=== PATIENT | male | born 1950 | race Caucasian/White ===

== ENCOUNTER 2018-05-07 17:14 | Emergency (ER) | payer MEDICARE, OTHER ==
[~2018-05-07] VITALS: Ht 177.8 cm; Wt 103.4 kg
[~2018-05-07 17:14] MED LIST: ASPI-495 PO; DIGO125T PO; HYDR-3974 PO; SILD100T PO; VALS40TA4 PO
--- NOTE | 2018-05-07 17:20 | NUR ---
PRESENTS TO ER C/O SEVERE LOWER BACK PAIN S/P TRIP AND FALL 2 DAYS AGO. ALSO C/O SOB AND WHEEZING. A/OX 3, BREATHING EVEN AND UNLABORED AT THIS TIME. NO DISTRESS. VITALS STABLE. SAFETY AND COMFORT MEASURES IN PLACE. AWAITING MD ORDERS.
[2018-05-07] MEDS ORDERED: MORPHINE SULFATE INJ 2 MG/ML DISP.SYRIN IM ONE (18:00)
[2018-05-07] MEDS ORDERED: ONDANSETRON 4 MG TAB.RAPDIS SL ONE (18:00)
[2018-05-07] MEDS ORDERED: ALBUTEROL FS 2.5 MG/0.5 ML VIAL.NEB NEB ONE (18:00)
--- NOTE | 2018-05-07 18:02 | NUR ---
PATIENT TAKEN TO RADIOLOGY VIA WHEELCHAIR.
[2018-05-07] MEDS ORDERED: MORPHINE SULFATE INJ 4 MG/ML DISP.SYRIN ONE (18:04)
[2018-05-07] MEDS ORDERED: ONDANSETRON 4 MG TAB.RAPDIS ONE (18:05)
[2018-05-07] MEDS ORDERED: ALBUTEROL FS 2.5 MG/0.5 ML VIAL.NEB ONE (18:11)
--- NOTE | 2018-05-07 18:13 | NUR ---
PATIENT RETURNED FROM RADIOLOGY IN STABLE CONDITION.
--- NOTE | 2018-05-07 18:33 | NUR ---
IV removed. Catheter intact and site benign. Pressure and 4x4 applied to site. No bleeding noted. Patient discharged to home in stable condition. Written and verbal after care instructions given. Patient verbalizes understanding of instruction.
--- NOTE | 2018-05-07 19:02 | NUR ---
REPORT GIVEN TO ROSAURA FOR DARIO.
--- NOTE | 2018-05-07 19:19 | NUR ---
SHARAD PROCTOR-BC IS AT THE BEDSIDE SPEAKING TO THE PT RE: FINDINGS.
[2018-05-07 20:12] VITALS: BP 158/71
== END 2018-05-07 20:13 | disposition home or self-care (01) ==
LOC: ER 17:16
DX: M84.48XA Pathological fracture, other site, initial encounter for fracture (principal); J45.901 Unspecified asthma with (acute) exacerbation; F10.10 Alcohol abuse, uncomplicated; K57.92 Diverticulitis of intestine, part unspecified, without perforation or abscess without bleeding; Z88.0 Allergy status to penicillin; Z88.6 Allergy status to analgesic agent; Y90.9 Presence of alcohol in blood, level not specified
CPT/HCPCS: 72131-TC; 72192-TC; A4606; J2270; Q0162; Z7610

== ENCOUNTER 2018-05-09 18:45 | Inpatient (IN) | payer MEDICARE, OTHER ==
[~2018-05-09] VITALS: Ht 177.8 cm; Wt 103.4 kg
--- NOTE | 2018-05-09 19:00 | NUR ---
PT TO ER BED 09. BIBWIFE C/O BACK PAIN, WAS SEEN HERE IN ER 2 DAYS AGO. PT PLACED IN GOWN AND ON YARD LABOR SUPERVISOR. VSS/RESP EVEN UNLABORED/NAD NOTED/AOX4. AWAITING MD DOOLEY.
[2018-05-09] MEDS ORDERED: ONDANSETRON HCL/PF 4 MG/2 ML VIAL ONE (19:13)
[2018-05-09] MEDS ORDERED: MORPHINE SULFATE INJ 4 MG/ML DISP.SYRIN ONE (19:14)
--- NOTE | 2018-05-09 19:20 | NUR ---
18G IV TO R AC X 1 ATTEMPT USING ASEPTIC TECH, BLOOD HANDED OVER TO THE LAB AT THE BEDSIDE. IV FLUSHES EASILY WITH NS, NO S/S INFILTRATION NOTED AT THIS TIME.
--- NOTE | 2018-05-09 19:29 | NUR ---
ASHISH PAGED, ABNER MACDONALD SIGNAL INTELLIGENCE ANALYST ACTIVITIES ATTENDANT
[2018-05-09] MEDS ORDERED: ONDANSETRON HCL/PF 4 MG/2 ML VIAL IVP ONE (19:30)
[2018-05-09] MEDS ORDERED: MORPHINE SULFATE INJ 2 MG/ML DISP.SYRIN IV ONE (19:30)
--- NOTE | 2018-05-09 19:30 | NUR ---
CALLED NURSING SUP. FOR MS BED
[2018-05-09 19:42] LABS: BASOPHILS % (AUTO) 0.2 % (0.0-2.0); EOSINOPHILS % (AUTO) 1.9 % (0.0-6.0); HEMATOCRIT 43 % (39-51); HEMOGLOBIN 14.8 g/dL (13.5-17.5); LYMPHOCYTES # (AUTO) 0.6 /CMM (0.8-4.8); LYMPHOCYTES % (AUTO) 9.4 % (20.0-44.0); MEAN CORPUSCULAR HGB CONC 34 g/dl (31.0-36.0); MEAN CORPUSCULAR VOLUME 101 fL (80-96); MONOCYTES # (AUTO) 0.4 /CMM (0.1-1.30); MONOCYTES % (AUTO) 6.4 % (2.0-12.0); NEUTROPHILS # (AUTO) 5.6 /CMM (1.8-8.9); NEUTROPHILS % (AUTO) 82.1 % (43.0-81.0); PLATELET COUNT (AUTO) 197 /CMM (150-450); RDW COEFFICIENT OF VARIATION 13.1 (11.5-15.0); RED BLOOD CELL COUNT(AUTO) 4.31 MIL/uL (4.5-6.0); WHITE BLOOD COUNT (AUTO) 6.7 K/uL (4.3-11.0)
[2018-05-09 19:48] LABS: POTASSIUM 3.9 mmol/L (3.5-5.1)
[2018-05-09 19:52] LABS: INR 0.98 (0.85-1.15)
[2018-05-09 20:00] VITALS: BP 141/63
[2018-05-09] MEDS ORDERED: MAG HYDROX/AL HYDROX/SIMETH 30 ML UDC PO PRN (20:00)
[2018-05-09] MEDS ORDERED: MORPHINE SULFATE INJ 2 MG/ML DISP.SYRIN IV PRN (20:00)
[2018-05-09] MEDS ORDERED: Z GUARD REMEDY 2 OZ OINT TP PRN (20:00)
[2018-05-09] MEDS ORDERED: ONDANSETRON HCL/PF 4 MG/2 ML VIAL IVP PRN (20:00)
[2018-05-09] MEDS ORDERED: MAGNESIUM HYDROXIDE 30 ML UDC PO PRN (20:00)
[2018-05-09] MEDS ORDERED: ACETAMINOPHEN 325 MG TABLET PO PRN (20:00)
--- NOTE | 2018-05-09 20:00 | NUR ---
MS 322-2 FOR INTRACTABLE BACK PAIN, ABNER MACDONALD ADMITTING
--- NOTE | 2018-05-09 20:40 | NUR ---
REPORT GIVEN TO [facility]
--- NOTE | 2018-05-09 20:47 | NUR ---
MS/RN RECEIVE PATIENT FROM [facility]. PATIENT IS AWAKE, ALERT, ORIENTED, COMFORTABLE, NO C/O AT THIS TIME, NO DISTRESS NOTE, ADMISSION DONE PER PROTOCOL, PLAN OF CARE DISCUSSED, VERBALIZED UNDERSTANDING AND AGREEMENT, TAUGHT THE USE OF CALL LIGHT AND PLACED AT BEDSIDE WITHIN REACH. WILL MONITOR.
[2018-05-09] MEDS: ENOXAPARIN SODIUM 40 MG/0.4 ML DISP.SYRIN SQ SCH (21:28)
--- NOTE | 2018-05-09 22:27 | NUR ---
MS/RN PATIENT IS SLEEPING AT THIS TIME, AROUSABLE, APPEAR COMFORTABLE, NO DISTRESS NOTED, CALL LIGHT IN REACH. WILL MONITOR.
[2018-05-09] MEDS ORDERED: METR500T PO (23:10)
[2018-05-09] MEDS ORDERED: CIPR500T5 PO (23:10)
[2018-05-09] MEDS ORDERED: HYDR-552 PO (23:10)
[2018-05-10] MEDS ORDERED: HYDROCODONE/APAP 5/325MG 1 EACH TABLET PO SCH (00:30)
[2018-05-10] MEDS: MORPHINE SULFATE INJ 4 MG/ML DISP.SYRIN IV PRN ×5 (00:47→22:44)
[2018-05-10 05:30] VITALS: BP 131/75
--- NOTE | 2018-05-10 05:51 | NUR ---
MS/RN PATIENT C/O LOWER BACK WADE 07/27, MEDICATED WITH MORPHINE 1 MG IVP ORDERED. WILL MONITOR. ALL NEEDS ATTENDED AT THIS TIME.
[2018-05-10 06:39] LABS: BASOPHILS % (AUTO) 0.5 % (0.0-2.0); HEMATOCRIT 44 % (39-51); HEMOGLOBIN 14.9 g/dL (13.5-17.5); LYMPHOCYTES # (AUTO) 0.8 /CMM (0.8-4.8); LYMPHOCYTES % (AUTO) 15.2 % (20.0-44.0); MEAN CORPUSCULAR HGB CONC 34 g/dl (31.0-36.0); MEAN CORPUSCULAR VOLUME 104 fL (80-96); MONOCYTES # (AUTO) 0.6 /CMM (0.1-1.30); MONOCYTES % (AUTO) 11.1 % (2.0-12.0); NEUTROPHILS # (AUTO) 3.5 /CMM (1.8-8.9); NEUTROPHILS % (AUTO) 70.2 % (43.0-81.0); PLATELET COUNT (AUTO) 153 /CMM (150-450); RDW COEFFICIENT OF VARIATION 14.2 (11.5-15.0); RED BLOOD CELL COUNT(AUTO) 4.25 MIL/uL (4.5-6.0)
[2018-05-10 06:55] LABS: CALCIUM, SERUM 8.4 mg/dL (8.5-10.1); CREATININE 0.9 mg/dL (0.6-1.3); MAGNESIUM 1.8 mg/dL (1.8-2.4); PHOSPHORUS 2.3 mg/dL (2.5-4.9); POTASSIUM 3.9 mmol/L (3.5-5.1)
[2018-05-10 07:06] LABS: THYROID STIMULATING HORMONE 1.079 uIU/mL (0.358-3.74)
--- NOTE | 2018-05-10 07:49 | NUR ---
MS RN OPENING NOTES RECEIVED PT FROM NIGHTSHIFT NURSE IN STABLE CONDITION. PT IS A/O X4. NO SOB NOTED. BREATHING IS EVEN AND UNLABORED. PT IS ON RA AND SATING WELL. HE DOES HOWEVER STATE THAT HE HAS LOWER BACK PAIN RATED AN 8/10. HE STATES THAT IT IS UNRELIEVED BY HIS CURRENT PAIN MANAGEMENT. WILL MAKE MD AWARE. IV TO RIGHT AC NOTED TO BE PATENT AND INTACT. NO REDNESS OR SIGNS OF INFILTRATION NOTED. BED IN LOW LOCKED POSITION, SIDE RAILS UP X2, CALL LIGHT WITHIN REACH. WILL CONTINUE TO MONITOR
[2018-05-10 08:00] VITALS: BP 146/75
[2018-05-10] MEDS: HYDROCODONE/APAP 10/325MG 1 EA TABLET PO PRN (08:33)
[2018-05-10] MEDS: ASPIRIN EC 81 MG TABLET.DR PO SCH (08:34)
[2018-05-10] MEDS: PANTOPRAZOLE 40 MG TABLET.DR PO SCH (08:35)
[2018-05-10] MEDS: METRONIDAZOLE 500 MG TABLET PO SCH ×3 (08:36→17:16)
[2018-05-10] MEDS: VALSARTAN 40 MG TABLET PO SCH (08:36)
[2018-05-10] MEDS: CIPROFLOXACIN HCL 500 MG TABLET PO SCH ×2 (08:36→17:16)
[2018-05-10] MEDS: DIGOXIN 0.125 MG TABLET PO SCH (08:36)
[2018-05-10] MEDS ORDERED: SILDENAFIL CITRATE 25 MG TABLET PO SCH (12:00)
[2018-05-10] MEDS: SILDENAFIL CITRATE 20 MG TABLET PO SCH (12:11)
[2018-05-10] MEDS ORDERED: K PHOS NEUTRAL 250 MG TABLET PO ONE (13:30)
[2018-05-10 16:00] VITALS: BP 146/69
--- NOTE | 2018-05-10 18:36 | NUR ---
MS RN CLOSING NOTES PT REMAINS IN STABLE CONDITION. ALL NEEDS WERE MET DURING SHIFT AND ORDERS CARRIED OUT ACCORDINGLY ALL DUE MEDS GIVEN. PAIN PROPERLY MANAGED WITH A COMBINATION OF MORPHINE AND NORCO ADMINISTRATION. HE WAS NOT SEEN BY PT HOWEVER, MULTIPLE ATTEMPTS WERE MADE TO CONTACT THERAPIST TO NO AVAIL. WILL F/U IN THE AM. IV REMAINS PATENT AND INTACT. VITALS STABLE THROUGHOUT SHIFT. WILL ENDORSE TO NIGHTSHIFT NURSE FOR DARIO
--- NOTE | 2018-05-10 19:40 | NUR ---
MS RN OPENING NOTE Patient was seen lying in bed AAOx4, breathing on RA with no SOB, and no signs of acute distress. SL IV is noted in the right FA, intact. Patient does complain of low back pain (s/p sacral fracture), but verbalizes understanding that it is too soon for his next dose of pain medication. Bed is in the low/locked position, two side rails up, and call dela cruz within reach. Will continue to monitor.
[2018-05-10 20:00] VITALS: BP 136/59
[2018-05-10] MEDS: HYDROCODONE/APAP 5/325MG 1 EACH TABLET PO PRN (20:37)
--- NOTE | 2018-05-10 20:40 | NUR ---
MS RN NOTE - [place] Patient s/p sacral fx is reporting low back pain at 8/10, and requesting [place] to have in between IV morphine. PO [place] 5/325mg administered as ordered. Will continue to monitor.
[2018-05-10] MEDS: ENOXAPARIN SODIUM 40 MG/0.4 ML DISP.SYRIN SQ SCH (21:00)
--- NOTE | 2018-05-10 22:45 | NUR ---
MS RN NOTE - Morphine IV Morphine 1mg administered for 9/10 low back pain reported by patient (s/p sacral fx). Patient commented that the [place] was not helpful. Will continue to monitor.
[2018-05-11] MEDS: HYDROCODONE/APAP 10/325MG 1 EA TABLET PO PRN ×4 (02:07→23:20)
--- NOTE | 2018-05-11 02:07 | NUR ---
MS RN NOTE - [place] Patient awoke from sleep and reported 10/10 low back pain; requested pain medication. Too early to give IV Morphine, therefore, PO [place] 10/325mg was administered as ordered.
[2018-05-11] MEDS: MORPHINE SULFATE INJ 4 MG/ML DISP.SYRIN IV PRN ×4 (06:04→20:37)
--- NOTE | 2018-05-11 06:09 | NUR ---
MS RN NOTE - Morphine Patient reported 8/10 low back pain and requested Morphine. 1mg IV Morphine administered as ordered.
--- NOTE | 2018-05-11 07:21 | NUR ---
MS RN OPENING NOTES RECEIVED PT FROM NIGHTSHIFT NURSE IN STABLE CONDITION. PT IS A/O X4. NO SOB NOTED. BREATHING IS EVEN AND UNLABORED. PT IS ON RA AND SATING WELL. HE VERBALIZES THAT HIS PAIN IS TOLERABLE AT THE MOMENT BUT WILL LIKE A PRN PAIN MEDICATION WHEN DUE. IV TO RIGHT AC NOTED TO BE PATENT AND INTACT. NO REDNESS OR SIGNS OF INFILTRATION NOTED. BED IN LOW LOCKED POSITION, SIDE RAILS UP X2, CALL LIGHT WITHIN REACH. WILL CONTINUE TO MONITOR
--- NOTE | 2018-05-11 07:44 | NUR ---
MS RN CLOSING NOTE Patient was seen lying in bed AAOx4, breathing on RA with no SOB. Patient continues with chronic back but is otherwise in no acute distress. Patient remains in stable condition. Call dela cruz within reach. Patient care has been endorsed to day shift RN.
[2018-05-11 08:00] VITALS: BP 123/66
[2018-05-11] MEDS: METRONIDAZOLE 500 MG TABLET PO SCH ×3 (08:27→16:22)
[2018-05-11] MEDS: VALSARTAN 40 MG TABLET PO SCH (08:27)
[2018-05-11] MEDS: CIPROFLOXACIN HCL 500 MG TABLET PO SCH ×2 (08:27→16:22)
[2018-05-11] MEDS: DIGOXIN 0.125 MG TABLET PO SCH (08:27)
[2018-05-11] MEDS: ASPIRIN EC 81 MG TABLET.DR PO SCH (08:28)
[2018-05-11] MEDS: PANTOPRAZOLE 40 MG TABLET.DR PO SCH (08:29)
[2018-05-11] MEDS: SILDENAFIL CITRATE 20 MG TABLET PO SCH (08:30)
[2018-05-11 16:00] VITALS: BP 143/70
--- NOTE | 2018-05-11 18:45 | NUR ---
MS RN CLOSING NOTES PT REMAINS IN STABLE CONDITION. ALL NEEDS WERE MET DURING SHIFT AND ORDERS CARRIED OUT ACCORDINGLY ALL DUE MEDS GIVEN. PAIN PROPERLY MANAGED WITH A COMBINATION OF MORPHINE AND NORCO ADMINISTRATION. IV REMAINS PATENT AND INTACT. VITALS STABLE THROUGHOUT SHIFT. WILL ENDORSE TO NIGHTSHIFT NURSE FOR DARIO
--- NOTE | 2018-05-11 19:35 | NUR ---
MS RN OPENING NOTE Patient was seen ambulating to the bathroom with a slow but steady gait. He is breathing comfortably on RA with no SOB and no signs of acute distress. SL IV remains intact in the right AC. Patient was made comfortable in bed with the bed in low/locked position, two side rails up, and call delac ruz within reach. Patient has no immediate needs or concerns at this time. Will continue to monitor.
[2018-05-11 20:00] VITALS: BP 129/67
--- NOTE | 2018-05-11 20:37 | NUR ---
MS RN NOTE - Morphine Patient reported 8 low back pain (s/p sacral fracture); he requested morphine. 1mg IV morphine was administered as ordered prn q4h. Vitals WNL. Will continue to monitor.
[2018-05-11] MEDS: ENOXAPARIN SODIUM 40 MG/0.4 ML DISP.SYRIN SQ SCH (20:38)
--- NOTE | 2018-05-11 23:20 | NUR ---
MS RN NOTE - [place] Patient awoke from sleep in pain, 8/10 low back pain, and requested [place]. PO [place] 10/325mg was administered. Will continue to monitor.
[2018-05-12] MEDS: MORPHINE SULFATE INJ 4 MG/ML DISP.SYRIN IV PRN (01:23)
--- NOTE | 2018-05-12 01:24 | NUR ---
MS RN NOTE - Morphine 1mg IV morphine given for uncontrollable back pain (06/26) s/p sacral fracture. Vitals WNL. Will continue to monitor.
[2018-05-12] MEDS: HYDROCODONE/APAP 10/325MG 1 EA TABLET PO PRN ×2 (03:53→08:12)
--- NOTE | 2018-05-12 03:59 | NUR ---
MS RN NOTE - [place] Patient awoke from sleep complaining of 8/10 low back pain, worse with movement/position change. PO [place] 10/325mg was given. Vitals remain WNL. Will continue to monitor.
--- NOTE | 2018-05-12 06:57 | NUR ---
MS RN CLOSING NOTE Patient was seen lying in bed AAOx4, breathing comfortably on RA with no SOB, and no signs of acute distress. Patient slept intermittently overnight, waking with back pain and requesting pain medication; otherwise, patient had no complications, vitals remain WNL, and patient is stable. Call dela cruz is within reach and patient has no immediate needs at this time. Patient care endorsed to day shift RN.
--- NOTE | 2018-05-12 07:25 | NUR ---
ms rn initial notes Received patient in bed, asleep, head of bed elevated, no SOB or distress noted, on room air and tolerated well. IV intact and patent, HL only. Alert and oriented x 3, verbally responsive and able to make needs known, per endorsement. No facial grimace noted. Call light with in patient reach, will continue to monitor accordingly.
[2018-05-12 08:00] VITALS: BP 127/69
[2018-05-12] MEDS: DIGOXIN 0.125 MG TABLET PO SCH (08:12)
[2018-05-12] MEDS: PANTOPRAZOLE 40 MG TABLET.DR PO SCH (08:12)
[2018-05-12] MEDS: SILDENAFIL CITRATE 20 MG TABLET PO SCH (08:12)
[2018-05-12] MEDS: ASPIRIN EC 81 MG TABLET.DR PO SCH (08:12)
[2018-05-12 08:13] VITALS: BP 127/69
[2018-05-12] MEDS: VALSARTAN 40 MG TABLET PO SCH (08:13)
[2018-05-12] MEDS: CIPROFLOXACIN HCL 500 MG TABLET PO SCH (08:13)
[2018-05-12] MEDS: METRONIDAZOLE 500 MG TABLET PO SCH ×2 (08:13→12:01)
--- NOTE | 2018-05-12 09:03 | NUR ---
ms rn notes Ale PEWTER FABRICATOR on site and informed about patient requesting for pain medication and per PEWTER FABRICATOR he will be discharge today and no more IVP pain medication, she will prescribe him PO pain medication. Patient made aware and amenable.
[2018-05-12] MEDS: HYDROCODONE/APAP 5/325MG 1 EACH TABLET PO PRN (09:09)
--- NOTE | 2018-05-12 15:15 | NUR ---
ms cleaner furniture notes Discharge instructions given to patient and able to understand instructions. Signed discharge paper and belonging list. Prescription given. Informed patient for follow appointment with his primary health care physician in 1-[address] Christian pain management . skin intact. Flu vaccine out of season and PNA refused. Explained the risk and benefits x 3 and still refused. Patient left via wheelchair in stable condition accompanied by RN assigned. Vital signs checked and recorded. discontinued IV and pressured applied to prevent bleeding. No complaint of pain or discomfort noted, nor chest pain. MD and charge nurse aware.
== END 2018-05-12 14:52 | disposition home or self-care (01) | DRG 543 ==
LOC: ER 18:53 → MED 20:20
PROVIDERS: ADMIT Registered Nurse; ATTEND Registered Nurse
DX: M48.58XA Collapsed vertebra, not elsewhere classified, sacral and sacrococcygeal region, initial encounter for fracture (principal); K57.32 Diverticulitis of large intestine without perforation or abscess without bleeding; M48.56XA Collapsed vertebra, not elsewhere classified, lumbar region, initial encounter for fracture; I11.0 Hypertensive heart disease with heart failure; I27.20 Pulmonary hypertension, unspecified; J45.909 Unspecified asthma, uncomplicated; I50.9 Heart failure, unspecified; Z96.653 Presence of artificial knee joint, bilateral; Z96.641 Presence of right artificial hip joint; Z82.3 Family history of stroke; Z80.1 Family history of malignant neoplasm of trachea, bronchus and lung; Z88.0 Allergy status to penicillin; Z79.82 Long term (current) use of aspirin; Z79.899 Other long term (current) drug therapy; Z91.81 History of falling; F10.21 Alcohol dependence, in remission; F15.21 Other stimulant dependence, in remission; J42 Unspecified chronic bronchitis; E78.5 Hyperlipidemia, unspecified; Z91.09 Other allergy status, other than to drugs and biological substances; E66.9 Obesity, unspecified; M48.061 Spinal stenosis, lumbar region without neurogenic claudication; Z68.32 Body mass index [BMI] 32.0-32.9, adult; R73.9 Hyperglycemia, unspecified
CPT/HCPCS: 36415; 71045-TC; 72131-TC; 72192-TC; 80048-TC; 80061-TC; 83735-TC; 84100-TC; 84443-TC; 85025-TC; 85730-TC; 87081-TC; A4606; J1650; J2270; J2405; Z7610

== ENCOUNTER 2018-05-14 12:55 | Outpatient (CLI) | payer MEDICARE ==
[~2018-05-14 12:55] MED LIST changes: +CIPR500T5 PO; +METR500T PO
[2018-05-14 13:10] VITALS: BP 152/100
== END 2018-05-14 23:59 | disposition home or self-care (01) ==
LOC: MSC 12:55
PROVIDERS: ATTEND Internal Medicine
DX: M84.48XD Pathological fracture, other site, subsequent encounter for fracture with routine healing (principal); G95.29 Other cord compression; M19.90 Unspecified osteoarthritis, unspecified site; I10 Essential (primary) hypertension; J44.9 Chronic obstructive pulmonary disease, unspecified; I27.20 Pulmonary hypertension, unspecified; E66.9 Obesity, unspecified; X58.XXXD Exposure to other specified factors, subsequent encounter

== ENCOUNTER 2019-03-15 13:45 | Inpatient (IN) | payer OTHER, MEDICARE ==
[~2019-03-15] VITALS: Ht 177.8 cm; Wt 103.0 kg
[2019-03-15] MEDS ORDERED: DIPH50CA4 PO (14:23)
[2019-03-15 14:31] LABS: BASOPHILS # (AUTO) 0.1 /CMM (0.0-0.2); BASOPHILS % (AUTO) 0.7 % (0.0-2.0); EOSINOPHILS % (AUTO) 1.5 % (0.0-6.0); HEMATOCRIT 47 % (39-51); LYMPHOCYTES # (AUTO) 0.7 /CMM (0.8-4.8); LYMPHOCYTES % (AUTO) 6.3 % (20.0-44.0); MEAN CORPUSCULAR HGB CONC 34 g/dl (31.0-36.0); MEAN CORPUSCULAR VOLUME 102 fL (80-96); MONOCYTES # (AUTO) 0.9 /CMM (0.1-1.30); NEUTROPHILS # (AUTO) 9.2 /CMM (1.8-8.9); NEUTROPHILS % (AUTO) 83.5 % (43.0-81.0); PLATELET COUNT (AUTO) 249 /CMM (150-450); RED BLOOD CELL COUNT(AUTO) 4.64 MIL/uL (4.5-6.0)
[2019-03-15 14:38] LABS: CREATININE 1.1 mg/dL (0.6-1.3); POTASSIUM 3.8 mmol/L (3.5-5.1)
[2019-03-15 14:44] LABS: ALBUMIN 3.7 g/dL (3.4-5.0); BILIRUBIN,DIRECT 0.3 mg/dL (0.0-0.2); BILIRUBIN,TOTAL 2.8 mg/dL (0.2-1.0); TOTAL PROTEIN, SERUM 7.5 g/dL (6.4-8.2)
[2019-03-15] MEDS ORDERED: CT SWABBABLE VALVE TRANS SET 1 EA INFUS.SET MC ONE (14:55)
[2019-03-15] MEDS ORDERED: IV NS 0.9% 250 ML IV ONE (14:55)
[2019-03-15] MEDS ORDERED: IOHEXOL-300 100 ML VIAL IV ONE (14:55)
[2019-03-15] MEDS ORDERED: IV NS 0.9% 1,000 ML BAG IV ONE ×2 (15:00→16:30)
[2019-03-15] MEDS ORDERED: MORPHINE SULFATE INJ 2 MG/ML DISP.SYRIN IV ONE (15:00)
[2019-03-15] MEDS ORDERED: ONDANSETRON HCL/PF - ER 4 MG/2 ML VIAL IV ONE (15:00)
[2019-03-15] MEDS ORDERED: MORPHINE SULFATE INJ 4 MG/ML DISP.SYRIN ONE (15:18)
[2019-03-15] MEDS ORDERED: ONDANSETRON HCL/PF 4 MG/2 ML VIAL ONE (15:18)
[2019-03-15] MEDS ORDERED: FLAGYL/NS RTU 500 MG/100 ML PIGGYBACK IV ONE (16:30)
[2019-03-15] MEDS ORDERED: LEVOFLOXACIN 500 MG /D5W 100ML 500 MG in PREMIX 1 EA IV ONE (16:30)
[2019-03-15] MEDS ORDERED: METRONIDAZOLE 500MG/ NS 100ML 500 MG in PREMIX 1 EA IV ONE (16:30)
[2019-03-15] MEDS ORDERED: LEVOFLOXACIN 500 MG /D5W 100ML 500 MG/100 ML PIGGYBACK IV ONE (16:30)
[2019-03-15] MEDS ORDERED: HYDROCODONE/APAP 5/325MG 1 EACH TABLET PO PRN (17:30)
[2019-03-15] MEDS ORDERED: MAGNESIUM HYDROXIDE 30 ML UDC PO PRN (17:30)
[2019-03-15] MEDS ORDERED: Z GUARD REMEDY 2 OZ OINT TP PRN (17:30)
[2019-03-15] MEDS ORDERED: MAG HYDROX/AL HYDROX/SIMETH 30 ML UDC PO PRN (17:30)
[2019-03-15] MEDS ORDERED: ZOLPIDEM TARTRATE 5 MG TABLET PO PRN (17:30)
[2019-03-15] MEDS ORDERED: ACETAMINOPHEN 325 MG TABLET PO PRN (17:30)
[2019-03-15 18:58] VITALS: BP 151/98
[2019-03-15 19:00] VITALS: BP 159/93
[2019-03-15] MEDS ORDERED: diphenhydrAMINE HCL 50 MG CAPSULE PO PRN (19:30)
[2019-03-15] MEDS: ONDANSETRON HCL/PF 4 MG/2 ML VIAL IVP PRN (19:48)
[2019-03-15] MEDS: MORPHINE SULFATE INJ 2 MG/ML DISP.SYRIN IV PRN (19:49)
[2019-03-15] MEDS: IV D5/0.45 NACL 1,000 ML IV PRN (19:58)
[2019-03-15 20:00] VITALS: BP 159/93
[2019-03-15 20:39] LABS: APPEARANCE,URINE CLEAR (CLEAR); BILIRUBIN,URINE NEGATIVE (NEGATIVE); BLOOD, URINE NEGATIVE Ery/uL (NEGATIVE); COLOR,URINE YELLOW (YELLOW); KETONES,URINE TRACE (NEGATIVE); LEUKOCYTE ESTERASE ,URINE NEGATIVE (NEGATIVE); NITRITE, URINE NEGATIVE (NEGATIVE); PROTEIN,URINE NEGATIVE (NEGATIVE); UGLUCOSE NEGATIVE (NEGATIVE); UROBILINOGEN,URINE 0.2 EU/dL (0.2)
[2019-03-15 21:00] LABS: BACTERIA,URINE Rare /HPF (None Seen); RBC,URINE NONE SEEN /HPF (0-2); SQUAMOUS EPITHELIAL CELL,UR Rare /HPF (None Seen); WBC,URINE 0-2 /HPF (0-3)
[2019-03-16] MEDS: ONDANSETRON HCL/PF 4 MG/2 ML VIAL IVP PRN ×3 (04:34→16:12)
[2019-03-16] MEDS: IV D5/0.45 NACL 1,000 ML IV PRN ×2 (04:44→14:54)
[2019-03-16] MEDS: MORPHINE SULFATE INJ 2 MG/ML DISP.SYRIN IV PRN (04:46)
[2019-03-16 06:57] LABS: BASOPHILS % (AUTO) 0.3 % (0.0-2.0); EOSINOPHILS % (AUTO) 2.3 % (0.0-6.0); HEMATOCRIT 44 % (39-51); HEMOGLOBIN 14.9 g/dL (13.5-17.5); LYMPHOCYTES # (AUTO) 0.6 /CMM (0.8-4.8); LYMPHOCYTES % (AUTO) 7.3 % (20.0-44.0); MEAN CORPUSCULAR HGB CONC 34 g/dl (31.0-36.0); MEAN CORPUSCULAR VOLUME 101 fL (80-96); MONOCYTES % (AUTO) 11.2 % (2.0-12.0); NEUTROPHILS # (AUTO) 6.7 /CMM (1.8-8.9); NEUTROPHILS % (AUTO) 78.9 % (43.0-81.0); PLATELET COUNT (AUTO) 209 /CMM (150-450); RED BLOOD CELL COUNT(AUTO) 4.31 MIL/uL (4.5-6.0); WHITE BLOOD COUNT (AUTO) 8.5 K/uL (4.3-11.0)
[2019-03-16 07:21] LABS: CALCIUM, SERUM 8.8 mg/dL (8.5-10.1); CREATININE 0.9 mg/dL (0.6-1.3); MAGNESIUM 2.1 mg/dL (1.8-2.4); PHOSPHORUS 2.6 mg/dL (2.5-4.9); POTASSIUM 4.1 mmol/L (3.5-5.1)
[2019-03-16 07:43] LABS: THYROID STIMULATING HORMONE 1.212 uIU/mL (0.358-3.74)
[2019-03-16 08:00] VITALS: BP 145/85
[2019-03-16] MEDS: DIGOXIN 0.125 MG TABLET PO SCH (09:00)
[2019-03-16] MEDS: SILDENAFIL CITRATE 20 MG TABLET PO SCH (09:00)
[2019-03-16] MEDS: VALSARTAN 40 MG TABLET PO SCH (09:00)
[2019-03-16] MEDS: PANTOPRAZOLE 40 MG VIAL IV SCH (09:34)
[2019-03-16 16:00] VITALS: BP_SYST 150; BP_SYST 151; BP_DIAS 81; BP_DIAS 91
[2019-03-16] MEDS: METRONIDAZOLE 500MG/ NS 100ML 500 MG in PREMIX 1 EA IV SCH (17:58)
[2019-03-16] MEDS ORDERED: LEVOFLOXACIN 500 MG /D5W 100ML 500 MG in PREMIX 1 EA IV SCH (18:00)
[2019-03-16 20:00] VITALS: BP 167/88
[2019-03-16 20:34] VITALS: BP 167/88
[2019-03-17] MEDS: METRONIDAZOLE 500MG/ NS 100ML 500 MG in PREMIX 1 EA IV SCH ×3 (01:17→17:30)
[2019-03-17] MEDS: ONDANSETRON HCL/PF 4 MG/2 ML VIAL IVP PRN ×3 (06:15→17:56)
[2019-03-17] MEDS: IV D5/0.45 NACL 1,000 ML IV PRN ×2 (06:16→22:13)
[2019-03-17 07:23] LABS: BASOPHILS # (AUTO) 0.1 /CMM (0.0-0.2); BASOPHILS % (AUTO) 0.6 % (0.0-2.0); EOSINOPHILS % (AUTO) 1.9 % (0.0-6.0); HEMATOCRIT 46 % (39-51); HEMOGLOBIN 15.7 g/dL (13.5-17.5); LYMPHOCYTES # (AUTO) 0.9 /CMM (0.8-4.8); LYMPHOCYTES % (AUTO) 11.1 % (20.0-44.0); MEAN CORPUSCULAR HGB CONC 34 g/dl (31.0-36.0); MEAN CORPUSCULAR VOLUME 100 fL (80-96); MONOCYTES # (AUTO) 0.8 /CMM (0.1-1.30); MONOCYTES % (AUTO) 10.2 % (2.0-12.0); NEUTROPHILS # (AUTO) 6.1 /CMM (1.8-8.9); NEUTROPHILS % (AUTO) 76.2 % (43.0-81.0); PLATELET COUNT (AUTO) 233 /CMM (150-450); RED BLOOD CELL COUNT(AUTO) 4.57 MIL/uL (4.5-6.0)
[2019-03-17 08:00] VITALS: BP 134/80
[2019-03-17 08:09] LABS: CALCIUM, SERUM 8.9 mg/dL (8.5-10.1); MAGNESIUM 2.1 mg/dL (1.8-2.4); PHOSPHORUS 2.6 mg/dL (2.5-4.9); POTASSIUM 3.9 mmol/L (3.5-5.1)
[2019-03-17] MEDS: PANTOPRAZOLE 40 MG VIAL IV SCH (08:52)
[2019-03-17] MEDS: SILDENAFIL CITRATE 20 MG TABLET PO SCH (09:00)
[2019-03-17] MEDS ORDERED: LEVOFLOXACIN 750 MG /D5W 150ML 750 MG in PREMIX 1 EA IV SCH (13:00)
[2019-03-17 16:00] VITALS: BP 145/92
[2019-03-17] MEDS: VALSARTAN 40 MG TABLET PO SCH (17:28)
[2019-03-17] MEDS: DIGOXIN 0.125 MG TABLET PO SCH (17:28)
[2019-03-17 18:28] LABS: ALBUMIN 3.1 g/dL (3.4-5.0); BILIRUBIN,DIRECT 0.1 mg/dL (0.0-0.2); BILIRUBIN,TOTAL 1.2 mg/dL (0.2-1.0); TOTAL PROTEIN, SERUM 6.9 g/dL (6.4-8.2)
[2019-03-17] MEDS ORDERED: SILDENAFIL CITRATE 20 MG TABLET PO ONE (18:30)
[2019-03-17 20:00] VITALS: BP 143/91
[2019-03-17 20:08] VITALS: BP 143/91
[2019-03-18] MEDS: METRONIDAZOLE 500MG/ NS 100ML 500 MG in PREMIX 1 EA IV SCH ×2 (00:54→08:43)
[2019-03-18] MEDS: ONDANSETRON HCL/PF 4 MG/2 ML VIAL IVP PRN (04:37)
[2019-03-18 07:34] LABS: BASOPHILS # (AUTO) 0.1 /CMM (0.0-0.2); BASOPHILS % (AUTO) 0.7 % (0.0-2.0); EOSINOPHILS % (AUTO) 2.5 % (0.0-6.0); HEMATOCRIT 45 % (39-51); HEMOGLOBIN 15.2 g/dL (13.5-17.5); LYMPHOCYTES % (AUTO) 14.6 % (20.0-44.0); MEAN CORPUSCULAR HGB CONC 34 g/dl (31.0-36.0); MEAN CORPUSCULAR VOLUME 100 fL (80-96); MONOCYTES # (AUTO) 0.8 /CMM (0.1-1.30); MONOCYTES % (AUTO) 11.2 % (2.0-12.0); NEUTROPHILS # (AUTO) 4.9 /CMM (1.8-8.9); PLATELET COUNT (AUTO) 256 /CMM (150-450); RED BLOOD CELL COUNT(AUTO) 4.47 MIL/uL (4.5-6.0); WHITE BLOOD COUNT (AUTO) 6.9 K/uL (4.3-11.0)
[2019-03-18 07:43] LABS: CREATININE 1.1 mg/dL (0.6-1.3); PHOSPHORUS 2.5 mg/dL (2.5-4.9); POTASSIUM 3.8 mmol/L (3.5-5.1)
[2019-03-18 08:00] VITALS: BP 160/65
[2019-03-18 08:42] VITALS: BP 160/105
[2019-03-18] MEDS: PANTOPRAZOLE 40 MG VIAL IV SCH (08:42)
[2019-03-18] MEDS: VALSARTAN 40 MG TABLET PO SCH (08:42)
[2019-03-18] MEDS: DIGOXIN 0.125 MG TABLET PO SCH (08:43)
[2019-03-18] MEDS ORDERED: SILDENAFIL CITRATE 20 MG TABLET PO SCH (09:00)
== END 2019-03-18 11:26 | disposition home or self-care (01) | DRG 391 ==
LOC: ER 13:51 → MED 17:16
PROVIDERS: ADMIT Student in an Organized Health Care Education/Training Program
DX: K57.80 Diverticulitis of intestine, part unspecified, with perforation and abscess without bleeding (principal); K65.9 Peritonitis, unspecified; K63.2 Fistula of intestine; N12 Tubulo-interstitial nephritis, not specified as acute or chronic; K42.9 Umbilical hernia without obstruction or gangrene; E86.0 Dehydration; I10 Essential (primary) hypertension; J45.909 Unspecified asthma, uncomplicated; Z68.33 Body mass index [BMI] 33.0-33.9, adult; R91.8 Other nonspecific abnormal finding of lung field; K76.9 Liver disease, unspecified; M19.90 Unspecified osteoarthritis, unspecified site; R73.9 Hyperglycemia, unspecified; E66.9 Obesity, unspecified; E78.5 Hyperlipidemia, unspecified; I27.20 Pulmonary hypertension, unspecified; Z88.0 Allergy status to penicillin; E80.6 Other disorders of bilirubin metabolism; D75.89 Other specified diseases of blood and blood-forming organs; J42 Unspecified chronic bronchitis; R73.03 Prediabetes; Z96.653 Presence of artificial knee joint, bilateral; Z96.641 Presence of right artificial hip joint; M84.48XS Pathological fracture, other site, sequela
CPT/HCPCS: 36415; 80048-TC; 80061-TC; 80076-TC; 80162-TC; 81000-TC; 82247-TC; 82248-TC; 83605-TC; 83690-TC; 83735-TC; 84100-TC; 84443-TC; 85025-TC; 87081-TC; 87086-TC; A4216; C9113; G0378; J1956; J2270; J2405; J3490; J7030; J7050; Q9967